=== PATIENT | female | born 1935 | race Caucasian/White ===

== ENCOUNTER → 2016-10-28 12:37 | Outpatient (CLI) | payer MEDICARE, OTHER ==
[2014-08-08 14:49] VITALS: BMI 27.5
[~2016-10-28 12:37] MED LIST: CENTRUM COMPLE1 EACH PO; CO Q-10150 MG PO; MAGNESIUM OXID250 MG PO; NORVASC5 MG PO; OMEGA-3100 MG PO; RELAFEN500 MG PO; ZEBETA5 MG PO
== END | disposition home or self-care (01) ==
LOC: D.US 12:37
DX: R60.0 Localized edema (principal)

== ENCOUNTER → 2016-12-02 14:41 | Outpatient (CLI) | payer MEDICARE, OTHER ==
[2014-08-08 14:49] VITALS: BMI 27.5
== END | disposition home or self-care (01) ==
LOC: D.US 09:30
DX: K76.0 Fatty (change of) liver, not elsewhere classified (principal)

== ENCOUNTER → 2017-06-03 09:03 | Outpatient (CLI) | payer MEDICARE, OTHER ==
[2014-08-08 14:49] VITALS: BMI 27.5
[2017-06-03 10:00] LABS: ALBUMIN 3.5 g/dL (3.4-5.0); BILIRUBIN - DIRECT 0.07 mg/dL (0.00-0.30); BILIRUBIN - INDIRECT 0.31 mg/dL (0.00-1.00); BILIRUBIN - TOTAL 0.38 mg/dL (0.2-1.3); PROTEIN - SERUM 7.4 g/dL (6.4-8.2)
== END | disposition home or self-care (01) ==
LOC: D.US 09:03
PROVIDERS: Internal Medicine Gastroenterology
DX: K76.0 Fatty (change of) liver, not elsewhere classified (principal)

== ENCOUNTER → 2017-06-16 12:17 | Outpatient (CLI) | payer MEDICARE, OTHER ==
[~2017-06-16] VITALS: Ht 162.6 cm; Wt 79.8 kg
[2017-06-16 14:36] VITALS: Ht 162.6 cm; Wt 79.8 kg
== END ==
LOC: D.FANS 06-09 09:00
DX: E11.9 Type 2 diabetes mellitus without complications (principal)

== ENCOUNTER 2017-07-23 08:28 | Outpatient (CLI) | payer MEDICARE, OTHER ==
--- NOTE | ~2017-07-23 | HEMODYNAMI ---
PATIENT:LETICIA LEOS MEDICAL RECORD: [id number] : 34 LOCATION:DMilCAT ADMISSION DATE: 07/23/17 Generatedon:07/23/201712:58 Patient name: LETICIA LEOS Patient #: [id number] SSN: : 1935 Date of study: 07/23/2017 Page: Of Hemodynamic Procedure Report Patient Data Patient Demographics Procedure consent was obtained First Name: LETICIA Gender: Female Last Name: DERIC : 1935 Middle Initial: JOIE Age: 82 year(s) Patient #: [id number] Race: Unknown Additional ID: [id number] Contact details [address]: [address] [place] [address] State: [place] City: [place] Zip code: [address] Admission Admission Data Admission Date: 07/23/2017 Admission Time: 8:28 Procedure Procedure Types Cath Procedure Diagnostic Procedure Right Heart RHC and LHC w/Coronaries Miscellaneous Procedures Moderate Sedation up to 30 minutes Peripheral Cath Diagnostic Procedure Cath Peripheral Vctfl-Fpzgabi-Gze-Off Procedure Description Procedure Date Procedure Date: 07/23/2017 Procedure Start Time: 12:32 Procedure End Time: 12:53 Procedure Staff Name Function Ashley Benitez RT Scrub Shmuel Miramontes RT Monitor Raven James RN Nurse Harish Avila MD Performing Physician Procedure Data Cath Procedure Fluoroscopy Diagnostic fluoroscopy Total fluoroscopy Time: 5.5 time: 5.5 min min Diagnostic fluoroscopy Total fluoroscopy dose: 884 dose: 884 mGy mGy Contrast Material Contrast Material Type Amount (ml) Isovue 300 114 Entry Location Entry Primary Successful Side Size Upsize Upsize Entry Closure Morales ccessful Closure Location (Fr) 1 (Fr) 2 (Fr) Remarks Device Remarks Femoral Right 7 Fr Manual vein Short Compression Femoral Right 5 Fr Exoseal artery Estimated blood loss: 10 ml Diagnostic catheters Device Type Used For End Catheter Placement Camarena Lifesciences 7Fr Procedure [place] Thermodilution florentino Cordis 5Fr Pigtail Procedure Catheter (MP) Cordis 5Fr 3DRC Catheter Procedure (MP) Cordis 5Fr JL 4.0 Procedure Catheter (MP) Diagnostic Infinity 5Fr Procedure JL 6 catheter Procedure Complications No complications Procedure Medications Medication Administration Route Dosage Oxygen NC 2 l/min Lidocaine 2% added to field 20 Heparin Flush Bag added to field 2 bags (1000units/500ml NS) 0.9% NaCl I.V. 100 ml/hr Versed I.V. 1 mg Fentanyl I.V. 50 mcg Versed I.V. 1 mg Fentanyl I.V. 50 mcg Versed I.V. 1 mg Hemodynamics Rest Heart Rate: 63 (bpm) Pressure Samples Time Site Value (mmHg) Purpose Heart Use Rate(bpm) 12:36 RA 11/10(9) Snapshot 61 12:36 RV 36/10,10 Snapshot 48 12:36 PCW 14/18(15) Snapshot 60 12:36 PA 32/15(21) Snapshot 58 Snapshots Pre Cath Intra NCS Post Cath Vital Signs Time Heart Resp SPO2 etCO2 NIBP Rhythm Pain Sedation Rate (ipm) (%) (mmHg) (mmHg) Status Level (bpm) 12:18:55 66 20 98 35.2 134/68(90) NSR 0 (11) 10(A) , No pain 12:23:03 61 16 98 26.2 121/63(88) NSR 0 (11) 10(A) , No pain 12:27:07 58 15 98 24.7 131/68(90) NSR 0 (11) 10(A) , No pain 12:31:15 58 22 96 41.9 119/66(88) NSR 0 (11) 10(A) , No pain 12:35:16 56 15 97 14.2 127/72(99) NSR 0 (11) 9(A) , No pain 12:39:22 64 18 98 1.4 126/62(95) NSR 0 (11) 9(A) , No pain 12:43:28 65 20 98 38.1 126/65(93) NSR 0 (11) 9(A) , No pain 12:47:34 64 25 98 38.1 106/61(80) NSR 0 (11) 9(A) , No pain 12:51:33 62 21 98 0 111/64(75) NSR 0 (11) 10(A) , No pain Medications Time Medication Route Dose Verified Delivered Reason Notes Effe ctiveness by by 12:18:05 Oxygen NC 2 Harish Carbajal used for l/min Austin James RN procedure 12:18:12 Lidocaine 2% added 20ml Harish Moreira for local to vial Austin Avila MD anesthetic field 12:18:19 Heparin Flush added 2 Harish Moreira used for Bag to bags Austin Avila MD procedure (1000units/500ml field NS) 12:18:27 0.9% NaCl I.V. 100 Harish Carbajal Per ml/hr Austin James RN physician 12:28:53 Versed I.V. 1 mg Harish Carbajal for Austin James RN sedation 12:28:59 Fentanyl I.V. 50 Harish Duranie for mcg Austin James RN sedation 12:34:17 Versed I.V. 1 mg Harish Carbajal for Austin James RN sedation 12:34:21 Fentanyl I.V. 50 Harish Carbajal for mcg Austin James RN sedation 12:41:37 Versed I.V. 1 mg Harish Carbajal for Austin James RN sedation Procedure Log Time Note 11:48:45 Raven James RN sent for patient. Start room use. 11:48:46 Time tracking: Regular hours 11:48:50 Plan of Care:Hemodynamics will remain stable., Cardiac rhythm will remain stable., Comfort level will be maintained., Respiratory function will remain adequate., Patient/ family verbilizes understanding of procedure., Procedure tolerated without complication., Recovers from procedure without complications.. 12:04:21 Patient received from Pre/Post Procedure Room to CCL 2 Alert and oriented. Tansferred to table in Supine position. 12:04:22 Warm blankets applied, and olivier hugger turned on for patient comfort. 12:04:23 Correct patient and procedure confirmed by team. 12:04:24 Signed procedure consent form obtained from patient. 12:04:25 Full Disclosure recording started 12:04:25 ECG and BP/O2 sat monitors applied to patient. 12:17:45 Vital chart was started 12:18:05 Oxygen 2 l/min NC was administered by Raven James RN; used for procedure; 12:18:12 Lidocaine 2% 20ml vial added to field was administered by Harish Avila MD; for local anesthetic; 12:18: Heparin Flush Bag (1000units/500ml NS) 2 bags added to field was administered by Harish Avila MD; used for procedure; :: 0.9% NaCl 100 ml/hr I.V. was administered by Raven James RN; Per physician; 12::18 Rhythm: sinus rhythm 12::33 H&P Date Dictated: 07/23/2017 New H&P dictated by physician.. 12::34 Pre-op teaching completed and patient verbalized understanding. 12::34 Pre-procedure instructions explained to patient. 12:20:26 Family in patients room. 12:20:27 Patient NPO since Midnight. 12:20:29 Is the patient allergic to Iodine/contrast media? No. 12:20:40 Is patient on blood thinner?No 12:20:42 Patient diabetic? No. 12:20:49 Previous problem with sedation/anesthesia? No ? 12:20:53 Snore? No 12:20:54 Sleep apnea? No 12:20:55 Deviated septum? No 12:20:56 Opens mouth fully? Yes 12:20:57 Sticks out tongue? Yes 12:21:01 Airway obstruction? Yes COPD 12:21:05 Dentures? Yes IN 12::19 Pre procedure: right dorsailis pedis pulse 1+ Palpable, but thready & weak; easily obliterated 12:21:24 Patient pain scale 0/10 ?. 12:21:38 IV patent on arrival in right antecubital with 0.9% NaCl at [facility]. 12:21:40 Lab results completed and on chart. 12:21:43 Right groin area was prepped with chlora-prep and draped in sterile fashion 12:21:44 Sharps counted by scrub and verified by R.N. 12:21:44 Alarms reviewed by R. N. 12:21:51 Use device set Femoral Dx 12:21:52 Tegaderm 4 x 4 opened to sterile field. 12:21:53 Acist Hand Control opened to sterile field. 12:21:54 Acist Manifold opened to sterile field. 12:22:03 Medline Cath Pack opened to sterile field. 12:22:03 Bag Decanter opened to sterile field. 12:22:03 Acist Syringe opened to sterile field. 12:22:04 St Taco 260cm J .035 wire opened to sterile field. 12:22:04 Terumo 5Fr [place] Sheath opened to sterile field. 12:22:05 Diagnostic Infinity 5Fr Multipack catheter opened to sterile field. 12:22:20 Terumo 7Fr [place] Sheath opened to sterile field. 12::31 --------ALL STOP TIME OUT------ 12::32 Final Timeout: patient, procedure, and site verified with staff and physician. All members of the team are in agreement. 12::34 Right groin site verified by team. 12::36 Physical assessment completed. ASA score P 2 - A patient with mild systemic disease as per Harish Avila MD. 12::39 Sedation plan: IV Moderate Sedation Versed, Fentanyl 12::41 Zero performed for pressure channel P1 12::53 Versed 1 mg I.V. was administered by Raven Jaems RN; for sedation; 12::59 Fentanyl 50 mcg I.V. was administered by Raven James RN; for sedation; 12:32:05 Cook 18G 7cm Percutaneous Entry needle opened to sterile field. 12:32:14 Procedure started. 12:32:19 Local anesthetic to right femoral artery with Lidocaine 2% by Harish Avila MD.INITIAL ACCESS ONLY 12:33:36 A 7 Fr Short sheath was inserted into the Right Femoral vein 12:34:00 A 5 Fr sheath was inserted into the Right Femoral artery 12:34:17 Versed 1 mg I.V. was administered by Raven James RN; for sedation; 12:34:21 Fentanyl 50 mcg I.V. was administered by Raven James RN; for sedation; 12:34:52 Zero performed for pressure channel P1 12:35:12 A Camarena Lifesciences 7Fr [place] Thermodilution florentino was advanced over the wire and used for Procedure. 12:35:52 Baseline sample Acquired. 12:37:25 Right heart pressures measured. 12:37:32 Catheter removed. 12:37:42 A Cordis 5Fr Pigtail Catheter (MP) was advanced over the wire and used for Procedure. 12:39:18 Aortic Root visualized 12:39:29 Injector settings: Ml/sec: 10, Volume: 20, 12:40:23 Abdominal Aortagram was performed. 12:40:27 Left leg runoff performed. 12:40:29 Right leg runoff performed. 12:40:46 Injector settings: Ml/sec: 10, Volume: 20, 12:41:06 Catheter removed. 12:41:37 Versed 1 mg I.V. was administered by Raven James RN; for sedation; 12:42:24 A Cordis 5Fr 3DRC Catheter (MP) was advanced over the wire and used for Procedure. 12:44:27 RCA angiography performed. 12:45:56 Catheter exchanged over wire. 12:46:16 A Cordis 5Fr JL 4.0 Catheter (MP) was advanced over the wire and used for Procedure. 12:46:36 Catheter removed. unable to cannulate vessel. 12:46:48 A Diagnostic Infinity 5Fr JL 6 catheter was advanced over the wire and used for Procedure. 12:47:22 LCA angiography performed. 12:47:37 Catheter removed. 12:47:52 Cordis 5Fr Exoseal opened to sterile field. 12:48:03 Sheath removed intact; hemostasis achieved with Exoseal to the Right Femoral artery. 12:48:05 Procedure ended.(Physican Out) 12:49:58 Fluoroscopy time 05.50 minutes. 12:50:19 Fluoroscopy dose: 884 mGy 12:50:19 Flurop Dose total: 884 12:50:56 Contrast amount:Isovue 300 114ml. 12:51:07 Sharps counted by scrub and verified by R.N. 12:52:28 Sheath removed intact; hemostasis achieved with Manual Compression to the Right Femoral vein. 12:52:31 Insertion/operative site no bleeding no hematoma. 12:52:33 Post-op/insertion site Right Femoral artery dressed using a 4 x 4 and Tegaderm. 12:52:34 Post Procedure Pulses reassessed and unchanged 12:52:37 Post-procedure physical assessment completed. ASA score P 2 - A patient with mild systemic disease as per Harish Avila MD. 12:52:40 Post procedure rhythm: unchanged. 12:52:43 Estimated blood loss: 10 ml 12:53:00 Post procedure instruction explained to patient.Patient verbalizes understanding. 12:53:01 Patient needs reinforcement of post procedure teaching. 12:53:20 Procedure type changed to Cath procedure, Diagnostic procedure, Right Heart, RHC and LHC w/Coronaries, Miscellaneous Procedures, Moderate Sedation up to 30 minutes, Peripheral Cath Diagnostic Procedure, Cath Peripheral, Pyswb-Uwauplm-Uvw-Off 12:53:21 Procedure and supply charges have been captured, reviewed, submitted and are correct. 12:53:24 Procedure Complication : No complications 12:53:30 Vital chart was stopped 12:53:31 See physician's report for complete and final results. 12:53:35 Report given to Pre/Post Procedure Room. 12:53:37 Patient transfered to Pre/Post Procedure Room with Stretcher. 12:53:39 Full Disclosure recording stopped 12:53:39 Procedure ended. 12:54:56 End room use (Document Last) Device Usage Item Name Manufacture Quantity Catalog Hospital Part Current Minima l Lot# / Number Charge Number Stock Stock Serial# Code Tegaderm 4 x 4 3M 1 [id number] 930800 680318 5 Acist Hand Acist 1 17012 116607 426964 714428 5 Control [employer] Inc Acist Manifold Acist 1 80969 784237 041526 160238 5 Medical Systems Inc Acist Syringe Acist 1 21226 960147 844649 753500 20 Medical Systems Inc Bag Decanter Microtek 1 2002S 926240 67709 646515 5 Medical Inc. Medline Cath Cardinal 1 [id number] 227091 53395 407579 5 Pack Health Terumo 5Fr Terumo 1 [id number] 819288 883693 875794 [address] Taco 260[address] St Taco 1 178206 335314 140022 194816 30 J .035 wire Diagnostic Cardinal 1 [id number] 141120 15296 769148 30 Infinity 5Fr Health Multipack catheter Terumo 7Fr Terumo 1 [id number] 074620 937592 949441 5 [place] Sheath Cook 18G 7cm Z80 Labs Technology Incubator 1 [id number] 747212 77719 296503 5 Percutaneous Entry needle Camarena Camarena 1 [id number] 175298 02608 066838 3 Lifesci[employer] Lifesciences 7Fr [place] Thermodilution florentino Cordis 5Fr Cardinal 1 [id number] 5 Pigtail Health Catheter (MP) Cordis 5Fr Cardinal 1 848371 5 3DRC Catheter Health (MP) Cordis 5Fr JL Cardinal 1 796134 5 4.0 Catheter Health (MP) Diagnostic Cardinal 1 [id number] 211742 381292 876736 5 Infinity 5Fr Health JL 6 catheter Cordis 5Fr Cardinal 1 EX500 055427 985777 547045 10 [facility] Grand Cru Signature Audit [place] Stage Time Signature Unsigned Intra-Procedure 07/23/2017 Shmuel Miramontes RT(R) 12:55:16 PM RT(R) 07/23/2017 12:56:52 PM Intra-Procedure 07/23/2017 Shmuel Miramontes 12:58:18 PM RT(R) Signatures Monitor : Shmuel Miramontes RT Signature : Date : Time : [place] [id number] [place] [id number]
[2017-07-23] MEDS ORDERED: PROAIR HFA8.5 GM INH (09:58)
[2017-07-23] MEDS ORDERED: CO Q-10200 MG PO (09:58)
[2017-07-23 10:03] VITALS: BP 153/52; BMI 29.6
[2017-07-23 10:18] LABS: BASOPHILS 0.4 % (0-2); HEMATOCRIT 39.2 % (36.0-48.0); HEMOGLOBIN 12.8 g/dL (12-16); IMMATURE GRANULOCYTES 0.2 % (0-5); LYMPHOCYTES 34.9 % (15-50); MCH 34.4 pg (26.0-34.0); MCHC 32.7 g/dL (31.0-37.0); MCV 105.4 fL (80.0-100.0); MEAN PLATELET VOLUME 9.5 fL (7.4-10.4); MONOCYTES 13.4 % (2-11); NEUTROPHILS 47.1 % (40-80); PLATELET COUNT 169 10x3/uL (130-400); RBC 3.72 10x6/uL (4.00-5.40); RDW 13.1 % (11.5-14.5)
[2017-07-23 10:34] LABS: ANION GAP 13.7 mmol/L (8-16); CALCIUM 9.2 mg/dL (8.5-10.1); CARBON DIOXIDE 25.8 mmol/L (21.0-32.0); CREATININE - SERUM 1.1 mg/dL (0.6-1.3); POTASSIUM - SERUM 4.5 mmol/L (3.5-5.1)
--- NOTE | 2017-07-23 13:20 | NUR ---
2L NC, NO RESP DISTRESS. RIGHT GROIN 5F EXOSEAL CDI, NO BLEEDING OR HEMATOMA NOTED. NO C/O PAIN OR NAUSEA. VSS. INSTRUCTED PT TO KEEP HEAD FLAT ON PILLOW AND RIGHT LEG STRAIGHT.
--- NOTE | 2017-07-23 13:45 | NUR ---
RIGHT PIV D/C'D WITH CATHETER INTACT, BAND AID TO SITE. UP TO BEDSIDE TO GET DRESSED.
--- NOTE | 2017-07-23 13:50 | NUR ---
RESTING QUIETLY WITH EYES CLOSED. RIGHT GROIN 5F EXOSEAL CDI, NO BLEEDING OR HEMATOMA NOTED. 2L NC, NO RESP DISTRESS. FAMILY AT BEDSIDE, CALL LIGHT WITHIN REACH.
--- NOTE | 2017-07-23 14:30 | NUR ---
HOB ELEVATED 30 DEGREES. RIGHT GROIN 5F EXOSEAL CDI, NO BLEEDING OR HEMATOMA NOTED. SANDWICH TRAY AND DRINK GIVEN. NO C/O NAUSEA. VSS.
--- NOTE | 2017-07-23 14:45 | NUR ---
RIGHT PIV D/C'D WITH CATHETER INTACT, BAND AID TO SITE. UP TO BEDSIDE TO GET DRESSED.
--- NOTE | 2017-07-23 14:56 | NUR ---
TO RESTROOM TO VOID.
--- NOTE | 2017-07-23 15:08 | NUR ---
DISCHARGE INSTRUCTIONS GIVEN, VERBALIZED UNDERSTANDING.
--- NOTE | 2017-07-23 15:15 | NUR ---
TAKEN OUT VIA WHEELCHAIR BY CATH ANIMAL CYTOLOGIST. LEFT FACILITY WITH FAMILY MEMBER AND ALL PERSONAL BELONGINGS.
--- NOTE | 2017-07-23 16:56 | HP ---
PATIENT: LETICIA LEOS MEDICAL RECORD: [id number] ACCOUNT: [id number] LOCATION:JAN : 34 ADMISSION DATE: 07/23/17 HISTORY AND PHYSICAL EXAMINATION DIAGNOSES: 1. Angina. 2. Aortic stenosis. 3. Hypertension. HISTORY OF PRESENT ILLNESS: Mrs. Leos has significant aortic stenosis and is being referred for TAVR to Dr. Townsend in [place]. She, however, has anginal symptomatology as well. We now will proceed with transcatheter revascularization of any coronary artery disease prior to her TAVR. PHYSICAL EXAMINATION: GENERAL APPEARANCE: Well-nourished, well-developed, appears stated age. Level of distress, comfortable. PSYCHIATRIC: Mental status, alert, normal affect. Orientation, oriented to time, place and person. EYES: Lids and conjunctiva, noninjected. No discharge, no pallor. ENT: Lips, teeth, gums, normal dentition. Oropharynx, no cyanosis, no pallor. NECK: Carotid arteries, bilateral normal upstroke, no bruits, no thrills. JUGULAR VEINS: No jugular venous pressure or distention. CERVICAL LYMPH NODES: Nontender, nonenlarged. THYROID: Not enlarged. Nontender. No nodules. LUNGS: Respiratory effort, unlabored. CHEST: Normal curvature. No thoracic deformity. No chest wall tenderness. Percussion, resonant. Auscultation, clear. No wheezes, no rales, no rhonchi. CARDIOVASCULAR: Precordial exam, nondisplaced. No heaves or pericardial thrills. Rate and rhythm, regular. Heart sounds, normal S1, normal S2. No S3, no gallop, no rub. Systolic murmur, not heard. Diastolic murmur, not heard. EXTREMITIES: No cyanosis, no edema. Peripheral pulses, full and equal in all extremities, except as noted. No bruits appreciated. ABDOMEN: Soft, nondistended. Normal aorta. No bruit. Nontender. No masses. Liver, nontender, no hepatomegaly. Spleen, nontender, no splenomegaly. MUSCULOSKELETAL: No joint tenderness. No joint swelling. No erythema. NEUROLOGICAL: Normal gait, normal strength, normal tone. SKIN: Warm and dry. REVIEW OF SYSTEMS: The patient reports easy bruising but reports no swollen glands. The patient reports no fever, no night sweats, no significant weight gain, no significant weight loss. No significant exercise tolerance. The patient reports no dry eyes, no irritation, no vision change. Patient reports no difficulty hearing and no ear pain. Patient reports no frequent nose bleeds or nose and sinus problems. Patient reports on arm pain on exertion. No shortness of breath while lying down. No history of heart murmur. Patient reports no cough, no wheezing or coughing up blood. Patient reports no abdominal pain, no vomiting. Normal appetite. No diarrhea and not vomiting blood. No nausea and no constipation. Patient reports no incontinence. No difficulty urinating. No hematuria. No increased frequency. Patient reports no muscle aches. No weakness, no arthralgias, no back pain. No swelling of the extremities. Patient reports no abnormal mole, no jaundice, no rashes. Reports no loss of consciousness. No weakness and no numbness. No seizures, dizziness, or headaches. The patient reports no depression, no sleep disturbance, feeling HISTORY AND PHYSICAL [id number] LETICIA LEOS safe in a relationship and no alcohol abuse. Patient reports on fatigue. Reports no runny nose or sinus pressure. No itching, no hives, and no frequent sneezing. OVERALL IMPRESSION: Aortic stenosis, angina and coronary artery disease. We will proceed with transcatheter revascularization for the coronary artery disease. This will be followed with transcatheter aortic valve replacement if the patient elected to. TRANSINT:[id number] Voice Confirmation ID: [id number] DOCUMENT ID: [id number] BEVERLY PONCE MD at 1656 CC: [id number] DICTATION DATE: 07/23/17903 DYE RANGE FEEDER: 07/23/17931 DEP CLI 07/23/17 [facility] [address] [place] [address]
--- NOTE | 2017-07-23 16:56 | OP ---
PATIENT NAME: LETICIA LEOS MEDICAL RECORD: [id number] :34 LOCATION:D.CAT ADMISSION DATE: SURGEON: BEVERLY PONCE MD DATE OF OPERATION: 07/23/2017 PROCEDURES: 1. Aortic root aortography. 2. Selective coronary angiography. 3. Aortofemoral runoff. 4. Abdominal aortography. 5. Right heart catheterization. INDICATION: Angina evaluation for aortic valve replacement and transcatheter peripheral vascular disease. PROCEDURE IN DETAIL: After informed consent was obtained and after a detailed explanation of the risks, benefits as well as alternative therapies, the patient elected to proceed with angiogram and heart catheterization. The right femoral area was prepped and draped in normal sterile fashion. The right femoral artery was cannulated via modified Seldinger technique with placement of 5-Grenadian sheath. Right femoral vein cannulated via modified Seldinger technique with placement of a 7-Grenadian sheath. All catheters exchanged through this sheath. HEMODYNAMICS: Pulmonary capillary wedge mean of 18, pulmonary artery pressure 31/18. Right ventricular pressure 31/13. Right atrial mean pressure 13. Left ventriculogram was not performed due to inability to cross the valve due to aortic stenosis. SELECTIVE CORONARY ANGIOGRAPHY: 1. Left main, left anterior descending, left circumflex, right coronary artery all have only minimal irregularities, no stenosis greater than 10%. 2. Aortic root aortography was performed. The ascending aortic root is markedly dilated, but does not appear to be dissected. 3. Abdominal aortography was performed. The catheter was pulled down for aortofemoral runoff. Abdominal aortography reveals very tortuous abdominal aorta. There is an infrarenal abdominal aortic aneurysm present. The outer dimensions will be better delineated by CT or ultrasound. No flow limiting stenosis in the abdominal aorta. 4. RIGHT LEG: A. Iliac: The common, internal, and external iliacs have moderate irregularities, but no flow-limiting stenosis. B Femoral system: The common superficial and deep femoral have moderate irregularities, but no flow-limiting stenosis. C. Popliteal and infrapopliteal vessels are patent with good 3-vessel runoff to the foot, could not pace the same thing except for the right leg better than the left leg. OVERALL IMPRESSION: 1. Aortic stenosis precluding crossing aortic valve. 2. Normal right heart pressures. 3. No significant coronary artery disease is present. 4. Tortuous abdominal aorta with infrarenal abdominal aortic aneurysm. TRANSINT:[id number] Voice Confirmation ID: [id number] DOCUMENT ID: [id number] OPERATIVE REPORT [id number] LETICIA LEOS, BEVERLY WETZEL at 1656 CC: [id number] DICTATION DATE: 07/23/17 1256 GAS BOOSTER ENGINEER: 07/23/17 1306 DEP CLI 07/23/[address] [address]
== END 2017-07-23 15:15 | disposition home or self-care (01) ==
LOC: D.CATH 08:28
PROVIDERS: Internal Medicine Interventional Cardiology
DX: I20.9 Angina pectoris, unspecified (principal); I35.0 Nonrheumatic aortic (valve) stenosis; I10 Essential (primary) hypertension; Z01.812 Encounter for preprocedural laboratory examination

== ENCOUNTER → 2017-12-02 09:04 | Outpatient (CLI) | payer MEDICARE, OTHER ==
[~2017-12-02 09:04] MED LIST changes: +CO Q-10200 MG PO; +PROAIR HFA8.5 GM INH
[2017-12-02 10:09] LABS: ALBUMIN 3.8 g/dL (3.4-5.0); BILIRUBIN - INDIRECT 0.31 mg/dL (0.00-1.00); BILIRUBIN - TOTAL 0.35 mg/dL (0.2-1.3); PROTEIN - SERUM 7.9 g/dL (6.4-8.2)
[2017-12-02 10:14] LABS: BILIRUBIN - DIRECT 0.04 mg/dL (0.00-0.30)
== END | disposition home or self-care (01) ==
LOC: D.US 09:04
PROVIDERS: Internal Medicine Gastroenterology
DX: K76.0 Fatty (change of) liver, not elsewhere classified (principal)

== ENCOUNTER → 2018-06-06 08:53 | Outpatient (CLI) | payer MEDICARE, OTHER ==
[2018-06-06 10:07] LABS: ALBUMIN 3.4 g/dL (3.4-5.0); BILIRUBIN - DIRECT 0.07 mg/dL (0.00-0.30); BILIRUBIN - INDIRECT 0.27 mg/dL (0.00-1.00); BILIRUBIN - TOTAL 0.34 mg/dL (0.2-1.3); PROTEIN - SERUM 7.3 g/dL (6.4-8.2)
== END | disposition home or self-care (01) ==
LOC: D.US 08:53
PROVIDERS: Internal Medicine Gastroenterology
DX: K76.0 Fatty (change of) liver, not elsewhere classified (principal)

== ENCOUNTER → 2018-06-21 08:59 | Outpatient (CLI) | payer MEDICARE, OTHER | END | disposition home or self-care (01) | LOC: D.US 08:59 | DX: I73.9 Peripheral vascular disease, unspecified (principal); M79.605 Pain in left leg; M79.604 Pain in right leg ==

== ENCOUNTER 2018-08-02 05:48 | Outpatient (CLI) | payer MEDICARE, OTHER ==
[~2018-08-02] VITALS: Ht 163.8 cm; Wt 72.7 kg
--- NOTE | ~2018-08-02 | HEMODYNAMI ---
PATIENT:LETICIA LEOS MEDICAL RECORD: [id number] : 33 [facility] [id number] ADMISSION DATE: 08/02/18 Generatedon:08/02/20189:48 Patient name: LETICIA LEOS Patient #: [id number] SSN: : [id number] Date of study: 08/02/2018 Page: Of Hemodynamic Procedure Report Patient Data Patient Demographics Procedure consent was obtained First Name: LETICIA Gender: Female Last Name: DERIC : 1935 Middle Initial: JOIE Age: 83 year(s) Patient #: [id number] Race: Unknown Additional ID: [id number] Contact details [address]: [address] [place] [address] State: [place] City: [place] Zip code: [address] Admission Admission Data Admission Date: 08/02/2018 Admission Time: 5:48 Procedure Procedure Types Cath Procedure Peripheral Cath Diagnostic Procedure Miscellaneous Procedure Description Procedure Date Procedure Date: 08/02/2018 Procedure Start Time: 8:45 Procedure Staff Name Function Isidoro Mcclelland MD Performing Physician Jonas oLpez RT Monitor Anitha Pinedo Scrub Mildred Salas RN Nurse Denia Serrato RN Nurse Procedure Data Cath Procedure Fluoroscopy Diagnostic fluoroscopy Total fluoroscopy Time: 4.9 time: 4.9 min min Diagnostic fluoroscopy Total fluoroscopy dose: 757 dose: 757 mGy mGy Contrast Material Contrast Material Type Amount (ml) Isovue 300 145 Entry Location Entry Primary Successful Side Size Upsize Upsize Entry Closure Succes sful Closure Location (Fr) 1 (Fr) 2 (Fr) Remarks Device Remarks Femoral Left 5 Fr Exoseal artery Procedure Medications Medication Administration Route Dosage Heparin Flush Bag added to field 3 bags (1000units/500ml NS) Oxygen etCO2 Nasal cannula 4 l/min Lidocaine 1% added to field 20 Versed I.V. 1 mg Fentanyl I.V. 50 mcg Hemodynamics Rest Heart Rate: 51 (bpm) Snapshots Pre Cath Intra NCS Post Cath Vital Signs Time Heart Resp SPO2 etCO2 NIBP (mmHg) Rhythm Pain Sedation Rate (ipm) (%) (mmHg) Status Level (bpm) 8:23:27 64 22 100 24.7 170/63(109) 1 0 (11) 9(A) degree , No AV pain Block 8:28:10 65 24 100 30.8 166/61(117) 1 0 (11) 9(A) degree , No AV pain Block 8:32:40 68 20 100 28.5 162/72(117) 1 0 (11) 9(A) degree , No AV pain Block 8:37:09 61 20 100 27.7 155/72(95) 1 0 (11) 9(A) degree , No AV pain Block 8:42:08 61 17 99 24.8 Measuring 1 0 (11) 9(A) degree , No AV pain Block 8:42:39 62 20 98 27.8 145/64(102) 1 0 (11) 9(A) degree , No AV pain Block 8:47:03 64 18 100 27 161/77(116) 1 0 (11) 9(A) degree , No AV pain Block 8:51:21 60 13 99 24.8 137/64(103) 1 0 (11) 8(A) degree , No AV pain Block 8:55:45 63 20 98 27 138/67(108) 1 0 (11) 8(A) degree , No AV pain Block 9:00:07 63 11 100 30 139/70(88) 1 0 (11) 8(A) degree , No AV pain Block 9:04:27 62 18 98 36.8 142/64(105) 1 0 (11) 8(A) degree , No AV pain Block 9:08:47 64 19 97 35.3 136/61(92) 1 0 (11) 8(A) degree , No AV pain Block 9:13:10 64 20 100 33.8 147/66(125) 1 0 (11) 8(A) degree , No AV pain Block 9:17:36 63 21 100 33 146/69(104) 1 0 (11) 8(A) degree , No AV pain Block 9:21:58 62 20 100 34.5 139/59(105) 1 0 (11) 8(A) degree , No AV pain Block 9:26:57 63 20 100 33.8 Measuring 1 0 (11) 8(A) degree , No AV pain Block 9:27:16 61 20 100 33.8 146/58(88) 1 0 (11) 8(A) degree , No AV pain Block 9:31:44 62 21 100 34.5 146/67(99) 1 0 (11) 8(A) degree , No AV pain Block 9:36:08 60 21 100 33.8 144/70(91) 1 0 (11) 8(A) degree , No AV pain Block 9:40:36 64 18 97 31.5 147/61(99) 1 0 (11) 8(A) degree , No AV pain Block 9:44:52 63 15 97 35.3 133/66(84) 1 0 (11) 8(A) degree , No AV pain Block Medications Time Medication Route Dose Verified Delivered Reason Notes Effec tiveness by by 8:09:13 Heparin Flush added 3 Isidoro Isidoro used for Bag to bags Stas Mcclelland MD procedure (1000units/500ml field WETZEL NS) 8:09:36 Oxygen etCO2 4 Isidoro Loza Per Nasal l/min Rojelio Mcclelland RN protocol cannula 8:09:50 Lidocaine 1% added 20ml Isidoro Chaudhry used for to vial Stas Mcclelland MD procedure field 8:47:39 Versed I.V. 1 mg Isidoro Loza for Rojelio Fisher RN sedation sleeping @ 8:54:09 8:47:49 Fentanyl I.V. 50 Isidoro Loza for l y Rojelio Jernigan RN sedation sleeping @ 8:54:12 Procedure Log Time Note 8:09:13 Heparin Flush Bag (1000units/500ml NS) 3 bags added to field was administered by Isidoro Mcclelland MD; used for procedure; 8:09:36 Oxygen 4 l/min etCO2 Nasal cannula was administered by Denia Serrato RN; Per protocol; 8:09:50 Lidocaine 1% 20ml vial added to field was administered by Isidoro Mcclelland MD; used for procedure; 8:18:01 Jonas Lopez RT (R) (CV) sent for patient. Start room use. 8:18:12 Time tracking: Regular hours (M-F 7:00 - 5:00) 8:18:22 Plan of Care:Hemodynamics will remain stable., Cardiac rhythm will remain stable., Comfort level will be maintained., Respiratory function will remain adequate., Patient/ family verbilizes understanding of procedure., Procedure tolerated without complication., Recovers from procedure without complications.. 8:18:34 Patient received from Outpatients to IR Alert and oriented. Tansferred to table in Supine position. 8:18:41 Correct patient and procedure confirmed by team. 8:18:43 Signed procedure consent form obtained from patient. 8:18:50 Use device set IR Diagnostic 8:18:51 Sterile Angiographic Pack opened to sterile field. 8:18:51 Tegaderm 4 x 4 (1626W) opened to sterile field. 8:18:52 Bag Decanter (2002S) opened to sterile field. 8:18:53 ACIST Manifold (01246) opened to sterile field. 8:18:53 ACIST Hand Control (23580) opened to sterile field. 8:18:54 ACIST Syringe (17846) opened to sterile field. 8:19:04 ECG and BP/O2 sat monitors applied to patient. 8:19:05 Full Disclosure recording started 8:19:06 8:19:10 H&P Date Dictated: 08/02/2018 H&P Addendum completed by physician on day of procedure. (MUST COMPLETE FOR ALL OUTPATIENTS). 8:19:11 Pre-procedure instructions explained to patient. 8:19:11 Pre-op teaching completed and patient verbalized understanding. 8:19:13 Family in waiting room. 8:19:16 Patient NPO since Midnight. 8:19:22 Is the patient allergic to Iodine/contrast media? No. 8:19:58 Is patient on blood thinner?No 8:20:00 Patient diabetic? No. 8:20:02 ----Pre-sedation anethsthesia assessment.---- 8:20:06 Previous problem with sedation/anesthesia? No ? 8:20:08 Snore? No 8:20:09 Sleep apnea? No 8:20:11 Deviated septum? No 8:20:12 Opens mouth fully? Yes 8:20:13 Sticks out tongue? Yes 8:20:15 Airway obstruction? No ? 8:20:19 8:20:20 Dentures? Yes ? 8:20:25 Pre procedure: right dorsailis pedis pulse 1+ Palpable, but thready & weak; easily obliterated 8:20:32 Pre procedure: left dorsailis pedis pulse Doppler 8:20:39 Pre procedure: right posterior tibial pulse Doppler 8:20:47 Pre procedure: left posterior tibial pulse Doppler 8:21:15 Patient pain scale 0/10 no pain'. 8:21:35 IV patent on arrival in left hand with 0.9% NaCl at [facility]. 8:21:37 Sharps counted by scrub and verified by R.N. 8:21:38 Alarms reviewed by R. N. 8:21:48 Left groin area was prepped with chlora-prep and draped in sterile fashion 8:21:52 Vital chart was started 8:21:54 Baseline sample Acquired. 8:30:12 Baseline sample Acquired. 8:45:16 Physician arrived 8:45:16 --------ALL STOP TIME OUT------ 8:45:17 Final Timeout: patient, procedure, and site verified with staff and physician. All members of the team are in agreement. 8:45:20 Left groin site verified by team. 8:45:25 Sedation plan: IV Moderate Sedation Medication:Versed, Fentanyl 8:45:28 Procedure started. 8:45:32 Local anesthetic to left femerol artery with Lidocaine 1% by Isidoro Mcclelland MD.INITIAL ACCESS ONLY 8:47:39 Versed 1 mg I.V. was administered by Denia Serrato RN; for sedation; 8:47:49 Fentanyl 50 mcg I.V. was administered by Denia Serrato RN; for sedation; 8:54:09 Effectiveness of Versed delivered @ 8:47:39 is: Mostly sleeping 8:54:12 Effectiveness of Fentanyl delivered @ 8:47:49 is: Mostly sleeping 8:57:11 SHEATH 5FR [place] (SXI662) opened to sterile field. 8:57:12 Micropuncture VSI 4FR kit opened to sterile field. 8:57:12 DOC .035 wire (X26867) opened to sterile field. 8:57:13 Angiodynamics Omniflush 5Fr 65cm ([id number]) opened to sterile field. 8:57:13 GLIDE CATHETER 5FR ANGLED 65cm (CG507) opened to sterile field. 8:57:23 Access obtained with 4Fr micropunture. 8:57:34 A 5 Fr sheath was inserted into the Left Femoral artery 8:59:09 GLIDE WIRE ANGLE 180cm (YN4758) opened to sterile field. 9:20:12 TORQUE DEVICE PLASTIC .038 ( TD01) opened to sterile field. 9:28:07 EXOSEAL 5Fr (EX500) opened to sterile field. 9:28:29 Sheath removed intact; hemostasis achieved with Exoseal to the Left Femoral artery. 9:28:31 Procedure ended.(Physican Out) 9:30:53 Fluoroscopy time 04.90 minutes. 9:31:00 Fluoroscopy dose: 757 mGy 9:31:00 Flurop Dose total: 757 9:38:38 Contrast amount:Isovue 300 145ml. 9:38:40 Sharps counted by scrub and verified by R.N. 9:38:42 Insertion/operative site no bleeding no hematoma. 9:38:45 Post-op/insertion site Left Femoral artery dressed using a 4 x 4 and Tegaderm. 9:38:47 Post Procedure Pulses reassessed and unchanged 9:40:27 Procedure and supply charges have been captured, reviewed, submitted and are correct. 9:40:29 Post procedure instruction explained to patient.Patient verbalizes understanding. 9:48:05 Report given to Outpatients. 9:48:09 Patient transfered to Outpatients with Stretcher. 9:48:41 Vital chart was stopped Device Usage Item Name Manufacture Quantity Catalog Hospital Part Current Minim al Lot# / Number Charge Number Stock Stock Serial# Code Sterile Cardinal 1 [id number] 5 Angiographic Health Pack Tegaderm 4 x 3M 1 1626W 808770 617945 745128 5 4 (1626W) Bag Decanter Microtek 1 2001S 176428 90425 638256 5 (2001S) Medical Inc. ACIST Acist Medical 1 47280 934858 089434 387186 5 Manifold Systems Inc (13839) ACIST Hand [employer]ist Medical 1 32195 071471 384501 648170 5 Control Systems Inc (25188) ACIST Syringe [employer]ist Medical 1 68864 206542 171853 816212 20 (86647) Systems Inc SHEATH 5FR Terumo 1 BAQ585 437617 689455 208861 40 [place] (ZNB658) Micropuncture VSI VASCULAR 1 7266V 089670 009883 5 VSI 4FR kit SOLUTIONS DOC .035 wire [employer] 1 T43271 435917 778685 5 (E82853) Angiodynamics Angiodynamics 1 73819833 783361 884832 133649 5 Omniflush 5Fr 65cm ([id number]) GLIDE Terumo 1 CG507 975119 015354 5 CATHETER 5FR ANGLED 65cm (CG507) GLIDE WIRE Terumo 1 LC4698 571852 838329 839784 5 ANGLE 180cm (BL9663) TORQUE DEVICE [place] 1 TD01 035380 891666 679851 5 PLASTIC .038 Scientific ( TD01) EXOSEAL 5Fr Cardinal 1 EX500 489118 897022 330607 10 [id number] (EX500) Health Signature Audit [place] Stage Time Signature Unsigned Intra-Procedure 08/02/2018 Jonas 9:48:37 AM John RT (R) (CV) Signatures Monitor : Jonas Signature : John RT Date : Time : [facility] [address] [place] [address]
[2018-08-02 06:10] LABS: BASOPHILS 0.2 % (0-2); EOSINOPHILS 2.6 % (0-7); HEMATOCRIT 37.1 % (36.0-48.0); HEMOGLOBIN 12.1 g/dL (12-16); IMMATURE GRANULOCYTES 0.2 % (0-5); LYMPHOCYTES 41.9 % (15-50); MCH 33.7 pg (26.0-34.0); MCHC 32.6 g/dL (31.0-37.0); MCV 103.3 fL (80.0-100.0); MEAN PLATELET VOLUME 9.4 fL (7.4-10.4); MONOCYTES 8.4 % (2-11); NEUTROPHILS 46.7 % (40-80); PLATELET COUNT 161 10x3/uL (130-400); RBC 3.59 10x6/uL (4.00-5.40); RDW 13.9 % (11.5-14.5); WBC 5.3 10x3/uL (4.8-10.8)
[2018-08-02 06:20] LABS: APTT 24.1 SECONDS (22.8-39.4); INR 1.04 (0.85-1.17); PROTIME 13.2 SECONDS (11.6-15.0)
[2018-08-02 06:21] LABS: CALCIUM 9.1 mg/dL (8.5-10.1); CARBON DIOXIDE 32.2 mmol/L (21.0-32.0); CREATININE - SERUM 1.1 mg/dL (0.6-1.3); POTASSIUM - SERUM 4.2 mmol/L (3.5-5.1)
[2018-08-02] MEDS ORDERED: MILK OF MAGNESI30 ML PO (06:41)
[2018-08-02] MEDS ORDERED: PEPCID AC20 MG PO (06:42)
[2018-08-02 07:35] VITALS: Ht 163.8 cm; Wt 72.7 kg
== END 2018-08-02 13:17 | disposition home or self-care (01) ==
LOC: D.RAD 05:48
PROVIDERS: General Practice
DX: M79.662 Pain in left lower leg (principal); M79.661 Pain in right lower leg

== ENCOUNTER → 2018-12-05 09:51 | Outpatient (CLI) | payer MEDICARE, OTHER ==
[2018-08-02 07:35] VITALS: BMI 27.1
[~2018-12-05 09:51] MED LIST changes: +MILK OF MAGNESI30 ML PO; +PEPCID AC20 MG PO
[2018-12-05 11:24] LABS: ALBUMIN 3.6 g/dL (3.4-5.0); BILIRUBIN - DIRECT 0.1 mg/dL (0.00-0.30); BILIRUBIN - INDIRECT 0.23 mg/dL (0.00-1.00); BILIRUBIN - TOTAL 0.33 mg/dL (0.2-1.3); PROTEIN - SERUM 7.3 g/dL (6.4-8.2)
== END | disposition home or self-care (01) ==
LOC: D.US 09:51
PROVIDERS: ATTEND Internal Medicine Gastroenterology
DX: K76.0 Fatty (change of) liver, not elsewhere classified (principal)

== ENCOUNTER → 2019-03-13 11:03 | Outpatient (CLI) | payer MEDICARE, OTHER ==
[2018-08-02 07:35] VITALS: BMI 27.1
== END | disposition home or self-care (01) ==
LOC: D.CT 11:03
PROVIDERS: ATTEND Internal Medicine Cardiovascular Disease
DX: I71.4 Abdominal aortic aneurysm, without rupture (principal)

== ENCOUNTER → 2019-06-09 09:31 | Outpatient (CLI) | payer MEDICARE, OTHER ==
[2018-08-02 07:35] VITALS: BMI 27.1
[2019-06-09 10:56] LABS: ALBUMIN 3.6 g/dL (3.4-5.0); BILIRUBIN - DIRECT 0.08 mg/dL (0.00-0.30); BILIRUBIN - INDIRECT 0.36 mg/dL (0.00-1.00); BILIRUBIN - TOTAL 0.44 mg/dL (0.2-1.3); PROTEIN - SERUM 7.4 g/dL (6.4-8.2)
== END | disposition home or self-care (01) ==
LOC: D.HCCECHO 09:31 → D.HCCARDIO 14:30 → D.HCCECHO 14:30
PROVIDERS: ATTEND Internal Medicine Interventional Cardiology
DX: K76.0 Fatty (change of) liver, not elsewhere classified (principal); R06.02 Shortness of breath

== ENCOUNTER → 2019-12-08 09:26 | Outpatient (CLI) | payer MEDICARE, OTHER ==
[2018-08-02 07:35] VITALS: BMI 27.1
[2019-12-08 10:45] LABS: ALBUMIN 3.7 g/dL (3.4-5.0); BILIRUBIN - DIRECT 0.11 mg/dL (0.00-0.30); BILIRUBIN - INDIRECT 0.26 mg/dL (0.00-1.00); BILIRUBIN - TOTAL 0.37 mg/dL (0.2-1.3); PROTEIN - SERUM 7.5 g/dL (6.4-8.2)
== END | disposition home or self-care (01) ==
LOC: D.US 12-07 10:00 → D.LAB 12-07 10:30
PROVIDERS: ATTEND Internal Medicine Gastroenterology
DX: K76.0 Fatty (change of) liver, not elsewhere classified (principal)

== ENCOUNTER → 2020-03-07 10:25 | Outpatient (CLI) | payer MEDICARE, OTHER ==
[2018-08-02 07:35] VITALS: BMI 27.1
== END | disposition home or self-care (01) ==
LOC: D.CT 03-04 13:00
PROVIDERS: ATTEND Internal Medicine Cardiovascular Disease
DX: I71.4 Abdominal aortic aneurysm, without rupture (principal)

== ENCOUNTER → 2020-06-06 09:28 | Outpatient (CLI) | payer MEDICARE, OTHER ==
[2018-08-02 07:35] VITALS: BMI 27.1
== END | disposition home or self-care (01) ==
LOC: D.HCCECHO 09:28
PROVIDERS: ATTEND Internal Medicine Cardiovascular Disease
DX: I35.0 Nonrheumatic aortic (valve) stenosis (principal)

== ENCOUNTER → 2020-06-21 08:36 | Outpatient (CLI) | payer MEDICARE, OTHER ==
[2018-08-02 07:35] VITALS: BMI 27.1
[2020-06-21 09:58] LABS: ALBUMIN 3.7 g/dL (3.4-5.0); BILIRUBIN - DIRECT 0.05 mg/dL (0.00-0.30); BILIRUBIN - INDIRECT 0.26 mg/dL (0.00-1.00); BILIRUBIN - TOTAL 0.31 mg/dL (0.2-1.3); PROTEIN - SERUM 7.5 g/dL (6.4-8.2)
== END | disposition home or self-care (01) ==
LOC: D.US 08:36
PROVIDERS: ATTEND Internal Medicine Gastroenterology
DX: K76.0 Fatty (change of) liver, not elsewhere classified (principal)